=== PATIENT | male | born 1995 | race Hispanic/Latino ===

== ENCOUNTER 2016-05-17 06:14 | Emergency (ER) | payer OTHER ==
[~2016-05-17] VITALS: Ht 172.7 cm; Wt 75.5 kg
[2016-05-17 06:17] VITALS: BP 127/69; PULSE 83; RESP 16; O2SAT 96
--- NOTE | 2016-05-17 06:35 | ED.REPORT ---
HPI-Syncope Date of Service May 17, 2016 ED Provider: Ehsan Hart Patient is a 20 year old male who presents to the ED complaining of flu-like illness onset 4-5 days ago. Associated symptoms include fever, nausea, diarrhea , headache, earache, sinus congestion, sore throat, cough, back pain ("heavy and burning"), decreased appetite and fluid intake, and generalized abdominal pain (mild, waxes and wanes). He had an episode of wrist and hands locking up and cramping consistent with a carpopedal spasm with LOC for 10-15 min 1-2 hours prior to arrival. He denies rash, dysuria, confusion, or any other symptoms. He takes a supplement to "help return blood flow after you run". He had contact with flu-like illness one week ago. Nursing Notes Stated Complaint: LOSS OF CONSCIOUSNESS, CHEST DISCOMFORT Chief Complaint: FLU/Cold Symptoms Nursing Notes Reviewed: Yes Allergies: Coded Allergies: Penicillins (Verified Allergy, Severe, Rash, 04/05/16) amoxicillin (Verified Allergy, Severe, Rash, 04/05/16) Scheduled PRN Naproxen (Naproxen) 500 Mg Tab 500 MG PO BID PRN PRN For Pain Ondansetron ODT (Zofran ODT) 4 Mg Tablet 4 MG PO Q4H PRN PRN For Nausea General Time Seen by Provider: 06:34 Chief Complaint Other (Flu-like illness) Hx Obtained From: Patient Arrived By: Walk-in Onset Occurred: 4 days ago Symptom Duration: Since onset Past Medical History Past Medical History Healthy Past Surgical History None Smoking History Never Smoker Social History Alcohol Use: Denies alcohol use Drug Use: Denies drug use Ambulatory Status Independent Review of Systems Constitutional: Reports: Fever Ears / Nose / Throat: Reports: Earache bilateral, Nasal congestion, Sore throat Respiratory: Reports: Non-productive cough GI: Reports: Abdominal pain, Diarrhea, Nausea Musculoskeletal: Reports: Back pain Skin: Denies Rash Neurologic: Reports: Change LOC, Headache Complete sys rev & neg: except as marked. Additional Review of Systems Male: Denies Dysuria Physical Exam Initial Vital Signs Vital Signs (First) Date Time Temp Pulse Resp B/P Pulse Ox O2 Delivery O2 Flow Rate FiO2 05/17/16 06:17 36.8 83 16 127/69 96 Room Air Initial VS: Reviewed Head / Eyes: Atraumatic, Normocephalic Psychiatric: Mood/affect normal, Behavior normal, Normal thought content General/Constitutional: Awake, Alert, Well developed Warm to touch Respiratory / Chest: Atraumatic, Breath sounds NL, Breath sounds = bilat, No respiratory distress Cardiovascular: Heart rate NL Lower Extremity / Pelvis / MS: No swelling, No edema Neurologic: Oriented X3, Speech NL ENT: Airway patent, Tympanic membs NL Neck: Full range of motion, No adenopathy Abdomen: Atraumatic, Soft, Non-tender Interpretation & Diagnostics Lab Results Interpretation Lab Results Interpretation: Flu A+ ECG Interpretation ECG Interpretation: Sinus rate 79 unchanged from prior 03/14/11 Time: 06:31 Interpreted by: ED physician Re-Eval/Medical Decision Med Decision/Clinical Course Influenza A with episode of carpal pedal spasm and brief loss of consciousness that does not sound like an emergent cardiogenic syncopal episode. She was given Zofran and naproxen recommended to rest and hydration. And will be discharged. Not a candidate for Tamiflu due to time. Re-Evaluation/Progress : Time of Eval: 06:57 )( Re-Eval Neurologic Exam: Alert Re-Evaluation/Progress Note: Discussed lab results and plan for discharge. Patient understands and agrees with plan. All questions addressed at this time. Counseled Regarding: Diagnosis, Lab results, Need for follow-up, When/why to return to ED Discharge & Departure Impression: Primary Impression: Influenza due to influenza A virus Additional Impressions: Carpopedal spasm Syncope Syncope type: vasovagal syncope Qualified Code: R55 - Syncope and collapse Disposition: Home Discharge Condition All VS Reviewed: Yes Condition: Stable Patient Instructions: Influenza (ED) Additional Instructions: You had influenza. Use naproxen and Zofran to help your symptoms. Be sure to stay hydrated. Avoid heavy physical exertion until you are feeling better, which could take several more days. You are contagious until your symptoms have resolved. Return to the ER as needed for worsening symptoms. Referrals: [facility] Scribe Attestation Portions of this note were transcribed by Torin Jimenez. I, Dr. Hart personally performed the history, physical exam and medical decision-making; I reviewed and confirmed the accuracy of the information in the transcribed note. Signed by: Torin Jimenez 05/17/16, 0705 copies to: [facility] Ehsan Hart DO May 17, 2016 06:34 TORIN JIMENEZ May 17, 2016 06:59
[2016-05-17] MEDS ORDERED: Ondansetron 8 mg ODT Tablet PO ONE (06:50)
[2016-05-17] MEDS ORDERED: ONDA4TAB9 PO (07:01)
[2016-05-17] MEDS ORDERED: NPR500T PO (07:01)
== END 2016-05-17 07:00 | disposition home or self-care (01) ==
LOC: SED 06:14
DX: J10.1 Influenza due to other identified influenza virus with other respiratory manifestations (principal); R29.0 Tetany; R55 Syncope and collapse; Z88.0 Allergy status to penicillin; Z88.1 Allergy status to other antibiotic agents

== ENCOUNTER 2016-11-21 10:06 | Emergency (ER) | payer OTHER ==
[~2016-11-21] VITALS: Ht 172.7 cm; Wt 86.3 kg
[~2016-11-21 10:06] MED LIST: NPR500T PO; ONDA4TAB9 PO
[2016-11-21 10:16] VITALS: BP 136/85; PULSE 61; RESP 13; O2SAT 100
--- NOTE | 2016-11-21 11:24 | ED.REPORT ---
HPI-General Illness Date of Service Nov 21, 2016 ED Provider: Asim Muir MD Patient is a 21-year-old man with no significant past medical history who presents to the emergency department with acute onset gagging, nausea, and crampy abdominal pain followed by single episode of diarrhea. She had associated feelings of a dry tongue, and heat radiating from his umbilical area , and pain between his shoulder blades in his back. He reports his abdominal pain 6-7/10, it is primarily cramping in the umbilical area. He has mild headache and has experienced some chills but is not having overt fever, or vomiting. He had similar symptoms 7 months ago in which there was concern that he had appendicitis however he did not require surgery at that time. She did eat a sandwich at a bar yesterday that tasted kind of weird. Nursing Notes Stated Complaint: STOMACH AREA HOT/SHOULDER DISCOMFORT Chief Complaint: Male Abdominal Pain Nursing Notes Reviewed: Yes Allergies: Coded Allergies: Penicillins (Verified Allergy, Severe, Rash, 04/05/16) amoxicillin (Verified Allergy, Severe, Rash, 04/05/16) Scheduled PRN Naproxen (Naproxen) 500 Mg Tab 500 MG PO BID PRN PRN For Pain Ondansetron ODT (Zofran ODT) 4 Mg Tablet 4 MG PO Q4H PRN PRN For Nausea General Time Seen by MD: 11:03 Chief Complaint Abdominal pain, Diarrhea Hx Obtained From: Patient Sudden in Onset?: Yes Onset Occurred: 1 - 4 hours ago Past Medical History Past Medical History Healthy/denies Past Surgical History None Family History No family history of colon cancer, inflammatory bowel disease or celiac disease. Smoking History Never Smoker Social History Alcohol Use: "Social" Drug Use: Denies drug use Other Social History: Lives with parents Ambulatory Status Independent Review of Systems A comprehensive review of systems was conducted with the patient and found to be negative except as above in the History of Present Illness. Physical Exam Vital Signs Vital Signs Date Time Temp Pulse Resp B/P Pulse Ox O2 Delivery O2 Flow Rate FiO2 11/21/16 14:57 36.1 58 16 123/68 97 11/21/16 14:00 36.1 58 16 123/68 97 11/21/16 10:16 37.1 61 13 136/85 100 Initial VS: Reviewed General/Constitutional: Well-developed, Well-nourished Head / Eyes: Atraumatic, Normocephalic, PERRL ENT: Mucous membranes moist, Conjunctiva normal, No scleral icterus Neck: Supple, Non-tender, Full range of motion Respiratory: Breath sounds normal, Clear to auscultation, No respiratory distress Cardiovascular: Regular rate & rhythm, Heart sounds normal, Intact distal pulses Back: No CVA tenderness Lymphatic: No lymphadenopathy Extremities: Vascular intact, Neuro intact, No swelling, No tenderness Skin: Warm, Dry, No cyanosis Neurologic: Alert, Oriented, Nonfocal Psychiatric: Mood/affect normal, Behavior normal, Normal thought content Abdomen: Atraumatic, Soft Tenderness/Guarding/Rebound: Positive: Tender diffuse, Negative: Viveros's sign positive Interpretation & Diagnostics Lab Results Interpretation Result Diagram: 11/21/16 1259 11/21/16 1259 Test 11/21/16 12:59 White Blood Count 4.7th/mm3 (3.8-10.1) Red Blood Count 4.67mil/mm3 (4.40-5.80) Hemoglobin 13.8g/dL (13.8-17.2) Hematocrit 40.0% (41.0-50.0) Mean Corpuscular Volume 85.7fL (81-100) Mean Corpuscular Hemoglobin 29.6pg (27.0-35.0) Mean Corpuscular Hemoglobin Concent 34.5% (32.0-37.0) Red Cell Distribution Width 12.4% (12.3-15.4) Platelet Count 205bil/L (150-400) Neutrophils (%) (Auto) 65.1% (40-74) Lymphocytes (%) (Auto) 27.1% (14-46) Monocytes (%) (Auto) 7.0% (4-12) Eosinophils (%) (Auto) 0.6% (0-5) Basophils (%) (Auto) 0% (0-3) Sodium Level 140mEq/L (134-144) Potassium Level 3.6mEq/L (3.5-5.2) Chloride Level 102mEq/L (97-108) Carbon Dioxide Level 24mmol/L (18-29) Blood Urea Nitrogen 11mg/dL (6-20) Creatinine 0.79mg/dL (0.76-1.27) Estimat Glomerular Filtration Rate 130mL/min (>59) Glucose Level 104mg/dL (60-99) Calcium Level 9.4mg/dL (8.5-10.1) Total Bilirubin 1.4mg/dL (0.0-1.2) Aspartate Amino Transf (AST/SGOT) 16U/L (0-50) Alanine Aminotransferase (ALT/SGPT) 15U/L (0-44) Alkaline Phosphatase 58U/L (25-150) Total Protein 7.1g/dL (6.4-8.4) Albumin 4.7g/dL (3.4-5.0) Lab Results Interpretation: Mildly elevated bilirubin 1.4 Re-Eval/Medical Decision Med Decision/Clinical Course In summary, 21-year-old man with no significant past medical history presents to the ED for evaluation of abdominal pain associated with nausea and one episode of diarrhea acute onset this morning. DDx broad and includes SBO, appendicitis, testicular torsion, cholecystitis/biliary colic, pancreatitis, nephrolithiasis/renal colic, IBD, gastroenteritis, diverticulitis. Upon arrival to the ED, patient hemodynamically stable, vitals grossly within normal limits. Pt given 1 L normal saline, he declined pain and nausea medication. Initial workup and labs as per above, no leukocytosis, elevated bilirubin of 1.4 , per records review has been as high as 1.9 in the past. Does not have any right upper quadrant tenderness or epigastric tenderness. Laboratory studies reviewed. No testicular pain or swelling noted. Discussed performing CT scan with the patient, however given the relatively mild symptoms and no focal tenderness on exam, he has opted to get a repeat exam in the next 24-48 hours instead. Given above and improvement of symptoms, this seems reasonable - appropriate to discharge patient with precautions to return tonight if symptoms worsen. Patient agreeable to the plan as stated, denies further questions. His primary care provider is Kelton Liu. Time of Eval: 13:10 Patient Status: Condition improved Re-Evaluation/Progress Note: Patient is feeling better, he was notified of laboratory results. His questions were answered. Discussion of brat diet to help with diarrhea occurred. He additionally noted that he runs and a ketotic state and fast until approximately 4 PM daily. Counseled Regarding: Diagnosis, Lab results, Need for follow-up, When/why to return to ED Discharge & Departure Primary Impression: Diarrhea Diarrhea type: unspecified type Qualified Code: R19.7 - Diarrhea, unspecified Additional Impression: Generalized abdominal pain Disposition: Home Discharge Condition All VS Reviewed: Yes Condition: Improved Patient Instructions: Acute Abdominal Pain (ED) Additional Instructions: Thank you for interesting as with your care today Your laboratory evaluation shows that you are not having an acute infection at this time. Though you do have abdominal tenderness. Take it easy for the next couple of days. Work to stay hydrated with water and electrolyte drinks like Gatorade. If your abdominal pain worsens, you develop fever and chills, or urinary able to stay hydrated as we discussed please return to the emergency department. Please establish care with a primary care provider. You may call to schedule an "emergency room follow-up" at the [facility] medicine clinic with Dr. Liu. Referrals: Kelton Beaver MD (PCP) Attending Statement I saw the patient with the resident. I agree with the plan and documentation as noted above. Discussed performing a CT scan with the patient, though decision made to hold off for now. This seems reasonable given unimpressive exam and improvement here. copies to: Kelton Beaver MD, William B MD Nov 21, 2016 11:24 Renetta Carl DO Nov 21, 2016 13:54
[2016-11-21] MEDS ORDERED: 0.9% Sodium Chloride 1,000 ML IV ONE (12:15)
[2016-11-21 13:15] LABS: BASOPHILS % (AUTO) 0 % (0-3); EOSINOPHILS % (AUTO) 0.6 % (0-5); Mean Corpuscular Hemoglobin 29.6 pg (27.0-35.0); Mean Corpuscular Volume 85.7 fL (81-100); NEUTROPHILS % (AUTO) 65.1 % (40-74); Platelet Count 205 bil/L (150-400)
[2016-11-21 14:00] VITALS: BP 123/68; PULSE 58; RESP 16; O2SAT 97
[2016-11-21 14:57] VITALS: BP 123/68; PULSE 58; RESP 16; O2SAT 97
== END 2016-11-21 14:58 | disposition home or self-care (01) ==
LOC: SED 10:06
DX: R19.7 Diarrhea, unspecified (principal); R10.84 Generalized abdominal pain; R11.0 Nausea; Z88.0 Allergy status to penicillin
CPT/HCPCS: 36415; 80053; 85025; 96360; 99284; J7030

== ENCOUNTER 2016-11-24 13:48 | Emergency (ER) | payer OTHER ==
[~2016-11-24] VITALS: Ht 172.7 cm; Wt 86.4 kg
[2016-11-24 13:51] VITALS: BP 124/80; PULSE 61; RESP 20; O2SAT 99
[2016-11-24 14:37] LABS: BASOPHILS % (AUTO) 0.1 % (0-3); EOSINOPHILS % (AUTO) 0.4 % (0-5); MONOCYTES % (AUTO) 5.5 % (4-12); Mean Corpuscular Hemoglobin 29.7 pg (27.0-35.0); Mean Corpuscular Volume 85.6 fL (81-100); NEUTROPHILS % (AUTO) 72.9 % (40-74); Platelet Count 233 bil/L (150-400)
[2016-11-24 14:57] LABS: Magnesium 2.2 mg/dL (1.6-2.6)
--- NOTE | 2016-11-24 16:50 | ED.REPORT ---
HPI-General Illness Date of Service Nov 24, 2016 ED Provider: Luis Sharma DO Patient left before being seen here. Apparently he was here for a recheck of his abdominal pain. His lab work was collected and returned unremarkable except for a mildly elevated bilirubin at 2.1. Vital signs were normal at triage Nursing Notes Stated Complaint: RECHECK Chief Complaint: Male Abdominal Pain Allergies: Coded Allergies: Penicillins (Verified Allergy, Severe, Rash, 04/05/16) amoxicillin (Verified Allergy, Severe, Rash, 04/05/16) Scheduled PRN Naproxen (Naproxen) 500 Mg Tab 500 MG PO BID PRN PRN For Pain Ondansetron ODT (Zofran ODT) 4 Mg Tablet 4 MG PO Q4H PRN PRN For Nausea General Time Seen by MD: 16:11 Chief Complaint Abdominal pain Past Medical History Past Medical History Healthy/denies Past Surgical History None Family History No family history of colon cancer, inflammatory bowel disease or celiac disease. Smoking History Never Smoker Social History Alcohol Use: "Social" Drug Use: Denies drug use Other Social History: Lives with parents Ambulatory Status Independent Physical Exam Vital Signs Vital Signs Date Time Temp Pulse Resp B/P Pulse Ox O2 Delivery O2 Flow Rate FiO2 11/24/16 13:51 36.6 61 20 124/80 99 Room Air Interpretation & Diagnostics Lab Results Interpretation Result Diagram: 11/24/16 1415 11/24/16 1415 Test 11/24/16 14:15 White Blood Count 6.9th/mm3 (3.8-10.1) Red Blood Count 5.08mil/mm3 (4.40-5.80) Hemoglobin 15.1g/dL (13.8-17.2) Hematocrit 43.5% (41.0-50.0) Mean Corpuscular Volume 85.6fL (81-100) Mean Corpuscular Hemoglobin 29.7pg (27.0-35.0) Mean Corpuscular Hemoglobin Concent 34.7% (32.0-37.0) Red Cell Distribution Width 12.6% (12.3-15.4) Platelet Count 233bil/L (150-400) Neutrophils (%) (Auto) 72.9% (40-74) Lymphocytes (%) (Auto) 21.0% (14-46) Monocytes (%) (Auto) 5.5% (4-12) Eosinophils (%) (Auto) 0.4% (0-5) Basophils (%) (Auto) 0.1% (0-3) Sodium Level 143mEq/L (134-144) Potassium Level 4.3mEq/L (3.5-5.2) Chloride Level 103mEq/L (97-108) Carbon Dioxide Level 24mmol/L (18-29) Blood Urea Nitrogen 11mg/dL (6-20) Creatinine 0.88mg/dL (0.76-1.27) Estimat Glomerular Filtration Rate 115mL/min (>59) Glucose Level 102mg/dL (60-99) Calcium Level 10.3mg/dL (8.5-10.1) Magnesium Level 2.2mg/dL (1.6-2.6) Total Bilirubin 2.1mg/dL (0.0-1.2) Aspartate Amino Transf (AST/SGOT) 17U/L (0-50) Alanine Aminotransferase (ALT/SGPT) 16U/L (0-44) Alkaline Phosphatase 69U/L (25-150) Total Protein 7.7g/dL (6.4-8.4) Albumin 5.0g/dL (3.4-5.0) Lipase 16U/L (13-60) Discharge & Departure Primary Impression: Generalized abdominal pain Referrals: Kelton Beaver MD (PCP) Luis Sharma DO Nov 24, 2016 16:50
== END 2016-11-24 16:01 | disposition left against medical advice (07) ==
LOC: SED 13:48
DX: Z51.89 Encounter for other specified aftercare (principal); R10.84 Generalized abdominal pain; Z88.0 Allergy status to penicillin; Z88.1 Allergy status to other antibiotic agents